=== PATIENT | female | born 1965 | race Caucasian/White ===

== ENCOUNTER 2018-08-10 07:14 | Day surgery (SDC) | payer BC, SELFPAY ==
--- NOTE | 2018-08-10 06:27 | W.COLOREPORT ---
Date of service: 08/10/18 Time of Service: 08: Colonoscopy Report Date of procedure: 08/10/18 Pre-op diagnosis general: Hx of polyps Post-op diagnosis procedure note: other (polyps) Procedure: Colonoscopy with polypectomy by cold forceps Surgeon: Laurie Mathis Anesthesia proc note operative: MAC (Thuy Fernandez CRNA /ASA 2) Estimated blood loss (mL): 5 Pathology: other (sigmoid colon polyps x4, rectal polyps x3) Complications: None Disposition: same day Indications: Mrs. Garcia is a pleasant 53 year old who was seen in the office for a follow-up colonoscopy. Patient had a colonoscopy in 2014 and was noted to have a tubular adenoma and a couple of hyperplastic polyps. Risks, benefits and complications have been reviewed. Complications include but are not limited to bleeding, pain, perforation, missed small lesion/polyp, sore throat, aspiration and adverse reaction to the medications. Questions were entertained and answered to their satisfaction and they wished to proceed. No guarantees were given or implied. Prep: Miralax/Dulcolax Procedure Start Time: : Procedure End Time: 09:02 Retraction Time: 26 minutes Findings: 1. Sigmoid polyps x4 2. Rectal polyps x3 Procedure Description: After informed consent was obtained the patient was taken to the procedure room and placed in a left decubitous position. Monitors were applied and a time out was done. The patients name, date of , procedure, allergies to medications and metal in their body was reviewed. The patient was then sedated. Once sedated and comfortable a rectal exam was done. External exam was normal. Internal exam revealed a normal sphincter tone and no palpable masses. The scope was then introduced and retro-flexed. No internal hemorrhoids were identified. The scope was then advanced to the cecum without difficulty. The TI and appendiceal orifice were identified. The prep was good. The scope was then slowly retracted over 26 minutes back into the rectum. Polyps were removed in the sigmoid colon x4, and rectal polyps x3. The scope was removed and the patient was woken up and taken back to Same day surgery in stable condition. The patient tolerated the procedure well and there were no immediate complications. Follow up: The patient should follow up in 3 years unless they develop changes in bowel habits or other new gastrointestinal complaints.
--- NOTE | 2018-08-10 06:31 | W.PM.DSUDISC ---
Discharge Plan Disposition Patient Disposition: HOME Condition: Good Discharge Details Reason For Visit: Hx of polyps/ F/U Colonoscopy Attending Provider: Laurie Mathis Primary Care Provider: Lynnette Saab Home Meds and New Rx's Prescriptions: Continued multivitamin tablet 1 tab PO DAILY RF: 0 nicotine [Nicoderm CQ] 1 EACH patch 24 hour 14 mg Transdermal DAILY 30 Days RF: 0 nicotine [Nicoderm CQ] 1 EACH patch 24 hour 21 mg Transdermal DAILY 30 Days RF: 0 ibuprofen 200 MG tablet 600 mg PO Q6H PRN RF: 0 omeprazole 20 MG capsule,delayed release(DR/EC) 20 mg PO DAILY RF: 0 nicotine [Nicoderm CQ] 1 EACH patch 24 hour 7 mg Transdermal DAILY 30 Days RF: 0 Discontinued bisacodyl [Dulcolax (bisacodyl)] 5 mg tablet,delayed release (DR/EC) 5 mg PO ONCE Qty: 4 RF: 0 polyethylene glycol 3350 17 gram/dose powder 255 g PO ONCE Qty: 255 RF: 0 Discharge Instructions Instructions: Colonoscopy (DC), Colorectal Polyps (DC) Additional Instructions: Findings: Multiple polyps Follow up: 3 years Please call if you develop: fevers >101.5 Nausea or Vomiting Abdominal pain that is not transient DAY SURGERY UNIT POST COLONOSCOPY INSTRUCTIONS 1. Because there will be medication in your system for the next 24 hours, you may feel a little sleepy. Your coordination will be affected. Therefore: a. Do not drive or operate dangerous equipment for 24 hours. b. Do not drink alcohol beverages for 24 hours (not even beer). c. Plan to go home and rest for the day. 2. Generally there are no restrictions on your activity after a day or so has gone by, but you may feel a bit fatigued for a few days. 3 After you arrive home you may have a light meal and return to a normal diet as you can tolerate it without feeling sick to your stomach. 4. After surgery, you may feel pain or discomfort. This should be only transient, but if it persists please contact your doctor. 5. If there are any questions regarding the findings of your procedure, please feel free to contact your doctor. 6. If you are unable to contact your doctor with a problem, contact the hospital at [phone]. 7. Continue all your regular medications unless directed otherwise. I understand the above instructions and have no questions. Signature of Patient or Responsible Adult Escort Date/Time Name of Responsible Adult Escort Signature of Nurse Date/Time Activity:: Activity as Tolerated Diet:: As Tolerated Discharge Orders Discharge Orders: Discharge Order (Routine); Ordered 08/10/18 Ordered By: Laurie Mathis DS: Diagnosis Discharge Diagnosis (1) Colorectal polyps: Status: Acute (2) S/P colonoscopy: Status: Acute
[2018-08-10 07:26] VITALS: BP 121/79; PULSE 73; RESP 16; TEMP 36.6; O2SAT 96
[2018-08-10] MEDS: Lactated Ringers 1,000 ML 80 ML IV (07:44)
--- NOTE | 2018-08-10 08:54 | BOWEL_PTH ---
PATIENT: Yael Garcia LOC: [facility] U#:[id number] AGE/SX: 53/F ROOM: RE08/10/[address]: Laurie Mathis MD : [id number] BED: DIS: 08/10/2018 SPEC #: [id number] RECD: 08/10/18 12:52 STATUS: LYNDON RE #: [id number] ANTONIA: 08/10/18 08:[address]: Laurie Mathis DEPT: Surgical Specimen RECD BY: Anna Puga ENTERED: 08/10/18 12:55 SP TYPE: Bowel OTHR DR: Lynnette Saab Tissues: 1 - BIOPSY BOWEL 2 - BIOPSY BOWEL Procedures: GROSS AND MICRO LEVEL 4 Comments: [id number]
[2018-08-10 09:35] VITALS: BP 118/78; PULSE 64; RESP 16; O2SAT 94
== END 2018-08-10 10:15 | disposition home or self-care (01) ==
LOC: SUR 07:15
PROVIDERS: PCP Nurse Practitioner; Visit Provider Surgery
PROC: 0DJD8ZZ Inspection of Lower Intestinal Tract, Via Natural or Artificial Opening Endoscopic (ICD-10-PCS; CPT 45378; principal; 2018-08-10 08:15)
DX: Z12.11 Encounter for screening for malignant neoplasm of colon (principal); D12.5 Benign neoplasm of sigmoid colon; K62.1 Rectal polyp; Z86.010 Personal history of colon polyps; J44.9 Chronic obstructive pulmonary disease, unspecified; F17.210 Nicotine dependence, cigarettes, uncomplicated
CPT/HCPCS: 45380; 88305

== ENCOUNTER 2019-08-09 10:32 | Outpatient (REF) | payer BC, SELFPAY ==
[2019-08-09 12:52] LABS: ALT 75 U/L (14-59); AST 40 U/L (15-37); Albumin 4.2 g/dL (3.4-5.0); Alkaline Phosphatase 192 U/L (46-116); Anion Gap 8.8 mmol/L (3-11); BUN 14 mg/dL (7-18); Bilirubin, Total 0.5 mg/dL (0.2-1.0); CO2 27.2 mmol/L (21.0-32.0); CREATININE 0.72 mg/dL (0.55-1.02); Calcium 9.8 mg/dL (8.5-10.1); Calculated LDL 161 mg/dL (>130); Chloride 105 mmol/L (98-107); Cholesterol 256 mg/dL (<200); Glucose 92 mg/dL (74-106); HDL Cholesterol 54 mg/dL (40-60); Potassium 4.2 mmol/L (3.5-5.1); Sodium 141 mmol/L (136-145); Total Protein 7.4 g/dL (6.4-8.2); Triglyceride 205 mg/dL (<150)
[2019-08-10 07:51] LABS: Vitamin D 25 Total 29.5 ng/ml (30-100)
== END 2019-08-09 10:52 ==
LOC: NCHCN 10:32
PROVIDERS: PCP Nurse Practitioner; Visit Provider Nurse Practitioner
DX: Z00.00 Encounter for general adult medical examination without abnormal findings (principal); Z13.29 Encounter for screening for other suspected endocrine disorder; Z13.228 Encounter for screening for other metabolic disorders; Z13.220 Encounter for screening for lipoid disorders; Z13.21 Encounter for screening for nutritional disorder
CPT/HCPCS: 80053; 80061; 82306; 84443

== ENCOUNTER 2019-08-23 01:40 | Outpatient (CLI) | payer BC, SELFPAY ==
--- NOTE | 2019-08-23 11:13 | DI.MAMMO_ITS ---
EXAM: MG MAMMO SCREENING CLINICAL HISTORY: SCREENING Z12.39. FAMILY H/O BREAST CA TECHNIQUE: Bilateral full field digital CC and MLO mammographic images were obtained with 3D tomosyn thesis and utilizing computer aided detection (CAD). COMPARISON: Available for comparison. FINDINGS: Masses/Architectural Distortion: None seen. Microcalcifications: No suspicious pleomorphic-type are seen. Skin Thickening/Nipple Retraction: None. IMPRESSION: 1. No significant interval change with no specific features of malignancy noted. 2. Unless there is more urgent need, screening mammography is recommended, as per [place] [employer] guidelines. ACR BI-RAD Category- 1 Negative Breast Density - Category B - Scattered areas of fibroglandular density A negative radiographic report should not delay biopsy if a dominant or clinically suspicious mass is present. Up to ten percent of cancers are not identified on mammography. A negative report may reinforce clinical impression. Adenosis and dense breasts may obscure an underlying neoplasm. False positive reports average 6 to 10%. Patient will receive a letter notifying them of these results.
== END 2019-08-23 02:00 ==
PROVIDERS: PCP Nurse Practitioner; Visit Provider Nurse Practitioner
DX: Z12.31 Encounter for screening mammogram for malignant neoplasm of breast (principal); Z80.3 Family history of malignant neoplasm of breast
CPT/HCPCS: 77063; 77067

== ENCOUNTER 2023-08-12 09:57 | Emergency (ER) | payer OTHER, SELFPAY ==
[2023-08-12 10:13] VITALS: BP 145/80; PULSE 70; RESP 17; TEMP 36.8; O2SAT 98
--- NOTE | 2023-08-12 10:27 | W.ED.GENAD ---
HPI General Date/Time Provider Initiated Documentation: 08/12/23 10:21. HPI Narrative: 58 year-old female presents to ED today by POV/wheelchair with a chief complaint of R knee injury, tripped going down steps and landed on R-knee, is R-hand dominant with onset just prior to arrival. Quality described as very painful with any movement to the knee, no radiation to numbness/tingling distally, gross swelling, gross deformity, proximal leg pain. Severity is described as 9/10 at onset, more mild at rest. Palliating factors include nothing specific attempted. Provoking factors include nothing specific. Patient not anticoagulated. Related Data Home Medications Medication Instructions Recorded Confirmed ibuprofen 200 mg tablet 600 mg PO Q6H PRN 11/10/14 08/12/23 omeprazole 20 mg capsule,delayed 20 mg PO DAILY 11/10/14 08/12/23 release multivitamin 1 tab PO DAILY 07/16/18 08/12/23 cholecalciferol (vitamin D3) 50 50 mcg PO DAILY 08/12/23 08/12/23 mcg (2,000 unit) capsule (Vitamin D3) Allergies Allergy/AdvReac Type Severity Reaction Status Date / Time No Known Allergies Allergy Verified 08/12/23 14:14 General Stated Complaint: Orthopedic FENG: 4 Review of Systems All systems reviewed & are unremarkable except as noted in HPI and below Exam Narrative Exam Narrative: GENERAL APPEARANCE: Well-nourished, non-toxic, awake and alert, atraumatic, no acute distress. SKIN: Warm, pink, dry, intact, without rashes/lesions/ulcerations. HEAD: Normocephalic, atraumatic, normal hair distribution for gender/age. EYES: Pupils PERRLA, EOMs intact without nystagmus, normal conjunctiva, no exudates on lids/lashes. ENT: Nares patent, no circumoral cyanosis, no facial swelling NECK: Supple, trachea midline, painless cervical ROM. LUNGS/CHEST: Lungs CTA bilaterally - no rhonchi/rales/wheezes diffusely, non-labored respirations, normal A/P diameter, symmetrical expansion, no chest wall deformity HEART (CV/PV): Regular rate and rhythm without murmur, no peripheral edema, no JVD. ABDOMEN: Soft, non-distended, no guarding. MSK: Normal ROM, no swelling/deformity to bilateral UEs or LEs, moving all extremities without weakness, no cyanosis, spine midline without tenderness, normal curvature. R LE: Swelling and tenderness with crepitus to the right knee with a palpable deformity at the right patella, no tib-fib tenderness, femur stable, weightbearing not tested, pain with movement but able to be assisted to extension NEURO: Mental Status AAOx4 - alert to person, place, time, events No facial droop, no forehead involvement. Motor: No focal weakness - strength 5/5 in bilateral UEs and LEs, proximal and distal, symmetric. Sensory: sensation intact to light touch globally. Gait NT. PSYCH: euthymic, cooperative, pleasant, appropriate speech Course Vital Signs Vital signs: Vital Signs Temperature 36.8 C 08/12/23 10:13 Pulse 70 08/12/23 10:13 Respiratory Rate 17 08/12/23 10:13 Blood Pressure 145/80 H 08/12/23 10:13 Pulse Oximetry 98 08/12/23 10:13 Temperature 36.8 C 08/12/23 10:13 Temperature Source Temporal Artery Scan 08/12/23 10:13 Pulse 70 08/12/23 10:13 Respiratory Rate 17 08/12/23 10:13 Blood Pressure 145/80 H 08/12/23 10:13 Blood Pressure Position Sitting 08/12/23 10:13 Pulse Oximetry 98 08/12/23 10:13 Oxygen Delivery Method Room Air 08/12/23 10:13 Oxygen Flow Rate 0 08/12/23 10:13 Medical Decision Making This dictation utilizes [id number] dictation software and may contain unedited grammatical errors. 58 y/o F presents to ED today with a chief complaint of fall after missing a stair, landed directly on R patella- pain & swelling. Patient denies numbness/tingling, denies headstrike. Patients' medical history: no cardiac disease. Family and social history: noncontributory. Pertinent exam findings / vital signs include R LE: Swelling and tenderness with crepitus to the right knee with a palpable deformity at the right patella, no tib-fib tenderness, femur stable, weightbearing not tested, pain with movement but able to be assisted to extension, pedal pulses intact distal Differential / pathologies of concern include Fracture, Internal Knee Injury, Sprain, Contusion. Diagnostic studies of: -XR R Knee 4 view - shows significantly patellar fracture with fragments displaced and retracted apart. Interventions of: -Tavarez dressing, knee immobilizer, crutches, orthopaedic consult. ED Course/Assessment/Plan: 58-year-old female presents with right knee injury, has significant patellar fracture with retraction of inferior and superior fragments with tendons, has no active range of motion at the knee discussed with orthopedics and she will be operated on either tomorrow or the next day, they find it reasonable to discharge home with Tavarez dressing and knee immobilizer, encouraged RICE therapy and using Tylenol as needed for pain. Findings not consistent with neurovascular compromise distal to injury. Disposition of Fracture of Right Patella. Patient verbalized understanding of the plan and return to ED criteria and engaged in shared decision making. Medical Records Medical records reviewed: Yes I reviewed the patient's medical records. Imaging Data Radiologic Study: Attestation: I personally reviewed and interpreted this imaging study as follows: Imaging: X-Ray Radiologist's impression: EXAM: XR KNEE RT 4V AP,LAT,AB,PAT CLINICAL HISTORY: direct impact to knee, possible patellar fracture. TECHNIQUE: 2D digital imaging was performed. Three views. COMPARISON: No exams were available for comparison FINDINGS: BONES: Fracture through the mid patella extending transversely periods separation of fracture fragments of 2.8 cm. Few small comminuted fragments are visible. The distal femur and proximal tibia and fibula appear intact. No bony destructive lesion is seen. JOINTS: Joint spaces are maintained.. No joint effusion is seen. SOFT TISSUE: Marked swelling anterior to patella. IMPRESSION: Patellar fracture with significant separation of fracture fragments. Quality:SDOH Health Related Social Needs: No Data to Display PFSH All Active Problems Fracture of right patella (Acute) Right patella fracture (Acute 08/12/23) S/P colonoscopy (Acute ~08/10/18) Colorectal polyps (Acute) Encounter for screening colonoscopy (Acute) History of colonic polyps (Acute) Medical History Bronchitis GERD (gastroesophageal reflux disease) Lung nodule Tubulovillous adenoma Surgical History Colonoscopy - IV Sedation (02/01/15) Cholecystectomy Family History Father Crohns disease Brother Abdominal malignant neoplasm Other Kidney disease Social History (Updated 12/28/18 @ 14:27 by Radha Rausch RN) Smoking/Tobacco Use Status: Current every day Tobacco Type: cigarettes Smoking risk assessment performed?: Yes Alcohol Intake: never Drug use: Never Substance use type: does not use Do you feel safe at home: Yes Do you feel safe in your relationship?: Yes Discharge Plan Disposition Patient Disposition: Home Condition: Stable Discharge Details Clinical Impression: Fracture of right patella Primary Care Provider: Lynnette Saab ED Provider: Roberto Garcia Home Meds and New Rx's Prescriptions: Continued multivitamin tablet 1 tab PO DAILY ibuprofen 200 MG tablet 600 mg PO Q6H PRN omeprazole 20 MG capsule,delayed release(DR/EC) 20 mg PO DAILY No Action cholecalciferol (vitamin D3) [Vitamin D3] 50 mcg (2,000 unit) capsule 50 mcg PO DAILY Discharge Instructions Instructions: Patellar Fracture (ED) Additional Instructions: You were seen in the emergency department for the fracture of your right patella, I have consulted with orthopedics and they plan to do surgery either tomorrow or Thursday. When they contact you for surgery you must have nothing by mouth after midnight that night. Remain in the knee immobilizer and is much extension as you can use crutches, you can weight-bear as tolerated. Please use therapeutic dosing of Tylenol (acetamenophen) & Advil (ibuprofen) in an alternating fashion as follows: Take 1000mg of Tylenol every 6 hours without missing doses- that is 4 times per day. [place] in between the Tylenol dosings, take 400-600mg of Advil also on a 6 hour schedule, that is also 4 times per day. The daily maximum dosing of Tylenol is 4000mg, and the daily maximum dosing of Advil is 2400mg. This is safe to do for weeks. Please note that some common cold medications & prescription pain medications may contain acetamenophen and you need to read OTC drug labels and factor that in to maximum daily dosings. Please hold ibuprofen midday prior to surgery day. Referrals: [facility] [Provider Group] Lynnette Saab [Primary Care Provider] - Discharge Data Discharge Date/Time-TO BE ENTERED AT DEPARTURE: 08/12/23 12:26
[2023-08-12] MEDS: Acetaminophen 500 MG TAB 1000 MG PO (11:07)
[2023-08-12] MEDS: Ketorolac 10 MG TAB PO (11:07)
--- NOTE | 2023-08-12 11:09 | DI.RAD_ITS ---
Exam(s) XR KNEE RT 4V AP,LAT,AB,PAT EXAM: XR KNEE RT 4V AP,LAT,AB,PAT CLINICAL HISTORY: direct impact to knee, possible patellar fracture. TECHNIQUE: 2D digital imaging was performed. Three views. COMPARISON: No exams were available for comparison FINDINGS: BONES: Fracture through the mid patella extending transversely periods separation of fracture fragmen ts of 2.8 cm. Few small comminuted fragments are visible. The distal femur and proximal tibia and f ibula appear intact. No bony destructive lesion is seen. JOINTS: Joint spaces are maintained.. No joint effusion is seen. SOFT TISSUE: Marked swelling anterior to patella. IMPRESSION: Patellar fracture with significant separation of fracture fragments. DATA REPOSITORY: RADIATION DOSE DELIVERED:
--- NOTE | 2023-08-12 11:36 | W.ORTHOCONSU ---
Date of service: 08/12/23 Time of Service: 11:36 Assessment and Plan Assessment and plan (1) Right patella fracture: Status: Acute Assessment and plan: 58-year-old female with displaced right patella fracture. Patient had a mechanical slip and fall at work prior to arrival at ER, landing directly onto her right knee. She denies any pre-existing right knee issues. Patient evaluated by ER provider and consultation requested. Patient received p.o. Toradol and Tylenol. Reports the pain is tolerable, declines any additional pain medication. Knee is currently flex but reports it feels better extended. Here in the ER today with her . Patient reports past medical history of GERD. Smokes 1 pack of cigarettes daily. Right knee exam: Visual inspection without erythema or ecchymosis. Skin is intact. There is diffuse discomfort about the patella as well as swelling and crepitus appreciated. Knee exam is limited secondary to guarding. Patient holds her knee in approximately 90 degrees of flexion. She is able to actively extend her knee without assistance, approximately 20 degrees short of full extension. Knee is stable to varus and valgus stress. Unable to assess anterior draw. Calf is soft, nontender. Normal pedal pulse and capillary refill. Reviewed x-ray with the patient and , reveals a transverse displaced patella fracture. Discussed in length. The knee was wrapped in a 6 inch Tomas wrap by me, patient tolerated well. I was able to passively extend her knee into near full extension. Patient reports that she is motivated to get home, does not believe that she needs to be hospitalized. Does not want anything other than [id number] Tylenol or Motrin. We discussed weightbearing as tolerated in full extension. Will check the surgical schedule and set her up for surgery either tomorrow or Thursday. She does understand that she will need to be n.p.o. after midnight the night before her surgery. Discussed with [facility] and provider. Patient would like to put her pants back on and then a foam knee immobilizer will be applied in near full extension. Patient will then need crutches with teaching, again we discussed the importance of partial weightbearing as tolerated in extension. In the meantime she was encouraged to rest, elevate, cool compresses every 2 hours for 20 minutes. All questions were answered. Agree and understand treatment plan. Will call if any changes or concerns. Plan for surgery tomorrow: Right patella ORIF. Called emergency room to update patient with the plan. Case added onto OR schedule. Informed consent will be obtained tomorrow. Follow-up 10 to 14 days postop. PFSH All Active Problems (Updated 08/12/23 @ 12:05 by WILLIS Oro) Fracture of right patella (Acute) Right patella fracture (Acute 08/12/23) S/P colonoscopy (Acute ~08/10/18) Colorectal polyps (Acute) Encounter for screening colonoscopy (Acute) History of colonic polyps (Acute) Medical History (Updated 08/12/23 @ 12:05 by WILLIS Oro) Bronchitis GERD (gastroesophageal reflux disease) Lung nodule Tubulovillous adenoma Surgical History (Updated 08/10/18 @ 09:10 by Laurie Mathis MD) Colonoscopy - IV Sedation (02/01/15) Cholecystectomy Family History Father Crohns disease Brother Abdominal malignant neoplasm Other Kidney disease Social History (Updated 07/16/18 @ 14:27 by Radha Rausch RN) Smoking/Tobacco Use Status: Current every day Smoking risk assessment performed?: Yes Alcohol Intake: never Drug use: Never Substance use type: does not use Do you feel safe in your relationship?: Yes Results Last Vital Signs Temp 98.2 F 08/12/23 10:13 Pulse 70 08/12/23 10:13 Resp 17 08/12/23 10:13 BP 145/80 H 08/12/23 10:13 Pulse Ox 98 08/12/23 10:13
== END 2023-08-12 12:26 | disposition home or self-care (01) ==
PROVIDERS: Emergency Provider Physician Assistant; PCP Nurse Practitioner
DX: S82.041A Displaced comminuted fracture of right patella, initial encounter for closed fracture (principal); F17.210 Nicotine dependence, cigarettes, uncomplicated; W10.8XXA Fall (on) (from) other stairs and steps, initial encounter
CPT/HCPCS: 99283; 73564; 99284

== ENCOUNTER 2023-08-13 08:02 | Day surgery (SDC) | payer OTHER, SELFPAY ==
[2023-08-13] VITALS (13 sets, daily range): BP systolic 108–133; BP diastolic 61–82; PULSE 60–80; RESP 13–21; TEMP 36–37.1; O2SAT 93–98; BMI 28.5
--- NOTE | 2023-08-13 07:25 | ROE_ITS ---
Date of service: 08/13/23 Time of Service: 10:00 Operative Note Operative Note DATE OF PROCEDURE: 08/13/23 PRE-OP DIAGNOSIS: Displaced right patella fracture POST-OP DIAGNOSIS: same PROCEDURE: Right patella ORIF, CPT# 02399 SURGEON: Darian Boone ACCOUNTING SUPERVISOR: Alie Nielsen ANESTHESIA TYPE: Local By Surgeon, General LMA/ETT and Primary Nerve Block Refer to Anesthesia Record ESTIMATED BLOOD LOSS: 5 COMPLICATIONS: None Patient was transported to: PACU Patient's condition: stable Implants: [employer] FiberTape & SutureTape Indications: Please see complete medical record for details. Findings: Comminuted distal pole patella fracture Procedure Description: In the operating room, general anesthesia was induced. The patient was positioned supine on the operating room table. All bony prominences were well- padded. Preoperative antibiotics were administered. The right knee was prepped and draped in the usual sterile fashion. The correct patient, procedure, and side of the procedure were all verified prior to incision. The planned longitudinal incision for about the superior pole of the patella to the mid patellar tendon was preinjected with 0.25% bupivacaine 30 cc containing epinephrine. This longitudinal approach was used down to the obvious patellar defect. The fracture site was cleared of clot and debris. The joint was thoroughly irrigated of small osteochondral fragments. It was obvious that the distal patella bone was quite small and poor quality. It was really only present distally and laterally with very thin bone centrally to medially. This distal bone was soft, bone forward and sepsis could readily go through it and was not amenable to screw fixation. Instead, suture?only repair was done. The 1.5 mm drill was used to place 2 bone tunnels from the fracture site exiting the superior pole the patella taking care to be relatively parallel to the articular margin not penetrate the joint with a small nicks in the quadriceps tendon made to retrieve the next suture. The FiberTape loaded on a long straight needle was then used and placed through the thin bone distally medially, through the medial bone tunnel through the remainder of patella and retrieved through the quadriceps small neck and then brought distally again over the patella fracture in a crisscross pattern, through the distal lateral bone with the assistance of bone forcep and then through this lateral proximal patellar bone tunnel retrieved through the quadriceps tendon again. The free ends were then brought together and the cerclage nicely reduced the patella fracture distal patellar f ragments and patellar tendon altogether with reasonably good fixation strength. This reduction was provisionally clamped, x-rays confirmed appropriate reduction with slight step-off laterally due to the comminution and lack of anatomic bone campos, but the displacement was in the superior direction with no inferior bone or cartilage impinging on the joint or trochlea. Downward pressure on this frag ment was used to improve this reduction slightly. Next, suture tape was used [id number] fashion to meticulously closed and repaired the medial and lateral retinacular and capsular extensions of the injury, which greatly strengthened the repair. When the FiberTape tails were released the fracture only gapped minimally, these tails were then secured completing the FiberTape cerclage repair, the free ends then passed through the patellar tendon couple stitches to lock and then tighten the free ends again distally at the about the mid patellar tendon and an additional security over the comminuted distal segment. Lastly, a suture tape was then used cerclage through the quadriceps tendon near the superior pole of the patella and distal to the inferior pole patella for patellar tendon and secured medially compressing around the patella and entire repair. The patella was flexed to about 90 degrees with no displacement or gapping. The repair was stable through testing and inspection. The wound was thoroughly irrigated normal saline. 2-0 Monocryl was used to close subcutaneous tissue followed by 3-0 Monocryl running to close subcuticular layer. Skin glue applied over the incision followed by Mepilex bandage and the knee was wrapped in soft roll and the extremity was wrapped in Tomas bandage and placed into a knee immobilizer in full extension.
[2023-08-13] MEDS: Lactated Ringers 1,000 ML 30 ML IV ×2 (08:31→11:27)
--- NOTE | 2023-08-13 08:56 | W.ANESPRE ---
General Info Date of Service Date Performed: 08/13/23 Height: 5 ft 4 in Weight: 75.5 kg Body Mass Index (BMI): 28.5 Surgical Procedure: Operation Date: 08/13/23 10:10 Proposed Procedure Side Surgeon p Knee ORIF Patella Right Darian Boone MD Meds Allergies and Home Medications Allergies Allergy/AdvReac Type Severity Reaction Status Date / Time No Known Allergies Allergy Verified 08/12/23 14:14 Home Medication Medication Instructions Recorded ibuprofen 200 mg tablet 600 mg PO Q6H PRN 11/10/14 omeprazole 20 mg capsule,delayed 20 mg PO DAILY 11/10/14 release multivitamin 1 tab PO DAILY 07/16/18 cholecalciferol (vitamin D3) 50 50 mcg PO DAILY 08/12/23 mcg (2,000 unit) capsule (Vitamin D3) Current Visit Medications: Current Medications Generic Name Dose Route Start Last Admin Trade Name Freq PRN Reason Stop Dose Admin Ringer's Solution 1,000 mls @ 30 mls/hr 08/13/23 06:00 08/13/23 08:31 IV 09/11/23 23:59 30 mls/hr INFUSION YOVANNY Administration Cefazolin Sodium/Dextrose 2 gm in 50 mls @ 100 mls/hr 08/13/23 06:00 Ancef Duplex IVPB 08/13/23 16:00 PREOP YOVANNY IV Miscellaneous Supplies 1 each 08/13/23 06:00 Iv Access IV 09/11/23 23:59 DIRECTED YOVANNY Oxycodone HCl 0 mg 08/13/23 07:25 Oxycodone 5 Mg Tab PO 09/12/23 07:24 Q3H PRN PRN Pain Sodium Chloride 0 ml 08/13/23 06:00 Normal Saline Flush 10 Ml Syr IV 09/11/23 23:59 PRN PRN Sodium Chloride 0 ml 08/13/23 06:00 Normal Saline 10 Ml Vial IJ 09/11/23 23:59 DIRECTED PRN Sterile Water 0 ml 08/13/23 06:00 Water,Injection,Sterile 10 Ml Vial IJ 09/11/23 23:59 DIRECTED PRN PFSH Active Problems Active Problems: Problem Status Onset Code Fracture of right patella S82.001A Right patella fracture 08/12/23 S82.001A S/P colonoscopy ~08/10/18 Z98.890 Colorectal polyps K63.5 Encounter for screening colonoscopy Z12.11 History of colonic polyps Z86.010 Medical History Medical History Bronchitis GERD (gastroesophageal reflux disease) Lung nodule Tubulovillous adenoma Surgical History Surgical History Colonoscopy - IV Sedation (02/01/15) Cholecystectomy Tobacco Smoking/Tobacco Use Status: Current every day Tobacco Type: cigarettes Alcohol Alcohol Intake: never Substance Use Substance use: Never Substance use type: does not use Vital Signs and Lab Results Vital Signs Most Recent Vital Signs in EMR: Most Recent Vital Signs Temp Pulse Resp BP Pulse Ox 36 C L 72 18 127/75 98 08/13/23 08:05 08/13/23 08:05 08/13/23 08:05 08/13/23 08:05 08/13/23 08:05 Lab Results Blood Type / Crossmatch: No Data to Display Complete Blood Count: No Data to Display Complete Metabolic Panel: No Data to Display Liver Function Panel: No Data to Display Coagulation Panel: No Data to Display Cardiac Panel: No Data to Display Arterial Blood Gas: No Data to Display Venous Blood Gas: No Data to Display Pancreas Panel: No Data to Display Thyroid Panel: No Data to Display Infectious Disease: No Data to Display Blood Cultures: No Data to Display Toxicology Panel: No Data to Display Anesthesia Assessment and Plan Anesthesia History Personal History: Delayed Emergence Family History: No Family History of Anesthesia Complications Exercise Tolerance Exercise Tolerance: Metabolic Equivalents>4 Pertinent Negatives Pertinent Negatives: No Symptoms of GERD Cardiac & Pulmonary Exam Cardiac Exam: Normal S1/S2 Heart Sounds Pulmonary Exam: Clear Bilateral Breath Sounds Implantable Cardiac Device Does patient have a Pacemaker or an ICD?: No Airway Exam Known Difficult Airway: No Mallampati Class: 2 Mouth Opening: Normal (> 3cm) Thyromental Distance: Greater than 3 cm Neck Range of Motion: Full ROM Neck Circumference: Normal Teeth Condition: Normal Dentition ASA Classification ASA Score: ASA 2 Emergency Case?: No NPO Status NPO Status: NPO Clears >2 hours, Solids >8 hours Anesthesia Plan Resuscitation Status: Full Code Anesthesia Technique: General Anesthesia Airway Planned: LMA Pain Management: Surgeon and patient request nerve block Monitors Used: Standard Monitors and SedLine
--- NOTE | 2023-08-13 09:18 | W.PM.DSUDISC ---
Date of service: 08/13/23 Time of Service: 12:30 Discharge Plan Disposition Patient Disposition: Home Condition: Stable Discharge Details Reason For Visit: Right patella fx Attending Provider: Darian Boone Primary Care Provider: Lynnette Saab Home Meds and New Rx's Prescriptions: New naproxen 250 mg tablet 250 - 500 mg PO BID PRN (Reason: moderate pain and swelling) Qty: 40 0RF oxycodone 5 mg tablet 5 - 10 mg PO .q4-6h PRN (Reason: severe pain) Qty: 18 0RF aspirin 81 mg capsule 81 mg PO DAILY 14 Days Qty: 14 0RF Continued multivitamin tablet 1 tab PO DAILY ibuprofen 200 MG tablet 600 mg PO Q6H PRN omeprazole 20 MG capsule,delayed release(DR/EC) 20 mg PO DAILY cholecalciferol (vitamin D3) [Vitamin D3] 50 mcg (2,000 unit) capsule 50 mcg PO DAILY Discharge Instructions Additional Instructions: Surgery: Right patella ORIF Activity: Weightbearing as tolerated in full knee extension with knee brace and crutches. Okay to rest foot on ground during stance. Elevate extremity to minimize swelling and discomfort. May loosen, adjust, and remove Velcro knee brace while resting with the knee fully straight. It is important to restore full knee extension as soon as possible. Please perform exercises as instructed including quadriceps isometrics, ankle pumps, and foot and ankle range of motion to improve circulation. A physical therapy prescription will be sent electronically to start in about 3 weeks. Protocol: ROM: Full extension only until initial follow up and then gently advance flexion 15 degrees/week starting at 30 degrees week #2: 0-30 degrees week 2; 0-60 degrees week 4; Goal 90 degrees flexion by the end of week 6; 120 degrees flexion week 8 and then to full flexion. Immediate quad isometric OK; NO ACTIVE knee extension for 6 weeks' A-AROM weeks 6-8 and then AROM weeks 8+ Discontinue knee brace, wean from crutches, and transition to weightbearing as tolerated with gait training weeks 8+ Gentle spin/bike around week 10 Closed-chain strengthening after 12 weeks Prescriptions: Aspirin 81 mg take 1 daily to prevent a blood clot for 14 days Naproxen 250 mg take 1-2 every 12 hours with a meal as needed for moderate pain (do not use at same time as ibuprofen) Oxycodone 5 mg take 1-2 every 4-6 hours as needed for severe pain You may use qmai-mfs-oqawvik Tylenol (acetaminophen) as needed for mild pain. These pain medications may be taken all at once or in different combinations as needed. Also, recommend Colace (docusate) as a stool softener as surgery and pain medicine cause constipation. You may try htbi-dty-jottdxi diphenhydramine (Benadryl) 25-50 mg nightly as a sleep aid Dressings: Leave dressing in place for 3 days. May then remove and leave open to air or cover incisions with Band-Aids. Leave the sticky Steri-Strips in place until they fall off or remove them after you shower. May shower after 5 days. Follow-up: 10-[address] Boone You may take off the leg compression stockings this evening at home. You may also leave them on a few days longer if you have a history of leg swelling or edema. Let us know right away if you develop any redness, drainage, fevers, chest pain, or trouble breathing. Do not drink alcohol or drive for at least 24 hours after anesthesia. Please call the office during business hours with any questions or concerns. Stand Alone Forms: Anesthesia Discharge Inst., Anes.Nerve Block Instructions, Katina Epps (DSU), Use of Axillary Crutches Referrals: Darian Boone MD [ [facility] STAFF PHYSICIAN] - 08/25/23 11:15 am Discharge Orders Discharge Orders: Discharge Order (Routine); Ordered 08/13/23 Ordered By: Darian Boone DS: Diagnosis Discharge Diagnosis (1) Right patella fracture: Status: Acute
[2023-08-13] MEDS: ceFAZolin 2 GM/50 ML BAG IVPB (09:56)
--- NOTE | 2023-08-13 10:18 | W.ANESNERVE ---
Nerve Block Single Injection Procedure Date and Time Date Performed: 08/13/23 Procedure Start: 09:37 Location Where Procedure Performed Procedure Location: Day Surgery Unit Reason Performed: Postoperative Analgesia Requesting Provider: Darian Boone Timeout Performed Timeout Performed: Yes Monitoring Used ECG, Blood Pressure, SpO2, ETCO2 and See EMR for corresponding vital signs Sterility Sterility: Hand Hygiene, Surgical Cap, Surgical Mask, Sterile Gloves, Eye Protection and Chlorhexidine Sedation Given During Procedure Sedation Given (Indicate Dose Given): Versed IV Dose:: 3mg IVP Patient Mental Status Patient Mental Status: Sedate with meaningful communication Nerve Block 1st Nerve Block: Laterality: Right Block Type: Adductor Canal Ultrasound Image Saved?: Yes Needle / Catheter Used: 100mm SonoPlex II Local Anesthetic Bolus (Indicate Dose Given): Lidocaine used for local infiltration of skin, Injected in 3-5ml increments after negative blood aspiration and Ropivacaine 0.5% Dose:: 0.5%/20CC (100mg) Additives (Indicate Dose Given): Epinephrine to make 1:200,000 (5mcg/ml) Dose:: 10mcg (1:200,000) Ultrasound: Sterile probe cover and gel used Nerve Stimulator: Not Used Paresthesia: None Procedure Tolerated: No Complications and Patient tolerated well Procedure Outcome: Successful Performed By: Wade Geiger 2nd Nerve Block: Laterality: Right Block Type: Other (Genicular Nerve Block (Distal Vastus muscles, intermedius, lateralis and Medialis)) Ultrasound Image Saved?: Yes Needle / Catheter Used: 100mm SonoPlex II Local Anesthetic Bolus (Indicate Dose Given): Lidocaine used for local infiltration of skin, Bupivacaine 0.5% Dose:: 0.5%/10cc (50mg) and Exparel Dose:: 1.3%/10cc (133mg) Additives (Indicate Dose Given): Epinephrine to make 1:400,000 (2.5mcg/ml) Dose:: 50mcg (1:400,000) Ultrasound: Sterile probe cover and gel used Nerve Stimulator: Not Used Paresthesia: None Procedure Tolerated: No Complications and Patient tolerated well Procedure Outcome: Successful Performed By: Wade Geiger
[2023-08-13] MEDS: Bupivacaine 0.25% Pres-Free 30 ML VIAL (10:47)
[2023-08-13] MEDS: EPINEPHrine 10 MG/10 ML ML (10:47)
--- NOTE | 2023-08-13 11:15 | DI.RAD_ITS ---
Exam(s) XR KNEE RT 1V EXAM: XR KNEE RT 1V CLINICAL HISTORY: right patella fracture TECHNIQUE: 2D and realtime digital imaging was performed. CONTRAST MATERIAL: Refer to procedure report. COMPARISON: CR XR KNEE RT 4V AP,LAT,AB,PAT from 08/12/2023 FINDINGS: Fluoroscopy was provided for Dr. Paolo conway during the performance of a reduction the patellar fra cture. Please refer to the procedure report for complete details. Ka,r=0.3 mGy IMPRESSION: RADIATION DOSE DELIVERED:
--- NOTE | 2023-08-13 14:05 | W.ANESPOSTOP ---
Postoperative Evaluation Date, Time and Location Date Performed: 08/13/23 Time Performed: 13:05 Patient Location: Day Surgery Unit Vital Signs Most Recent Imported Vital Signs: Most Recent Vital Signs Temp Pulse Resp BP Pulse Ox 36.6 C 66 18 117/82 96 08/13/23 13:02 08/13/23 13:02 08/13/23 13:02 08/13/23 13:02 08/13/23 13:02 Pain Score Most Recent Pain Score: Most Recent Pain Score Pain Level 4 08/13/23 13:02 Assessment Mental Status: Awake (Alert & Oriented to Patient Baseline) Airway and Respiratory Function: Patent airway with normal (patient baseline) respiratory exam Cardiovascular Function: Hemodynamically Stable Hydration Status: Adequately Hydrated Nausea & Vomiting: No Nausea or Vomiting Pain: Pain is tolerable per patient Peripheral Nerve Block: Regional nerve block not resolved at time of post operative discharge
== END 2023-08-13 13:50 | disposition home or self-care (01) ==
PROVIDERS: PCP Nurse Practitioner; Visit Provider Student in an Organized Health Care Education/Training Program
PROC: (CPT 27524; principal; 2023-08-13 10:00)
DX: S82.001A Unspecified fracture of right patella, initial encounter for closed fracture (principal); S82.041A Displaced comminuted fracture of right patella, initial encounter for closed fracture; W01.0XXA Fall on same level from slipping, tripping and stumbling without subsequent striking against object, initial encounter; Y99.0 Civilian activity done for income or pay; F17.210 Nicotine dependence, cigarettes, uncomplicated; K21.9 Gastro-esophageal reflux disease without esophagitis
CPT/HCPCS: 27524; 76000; 76942; 73560; C9290; J0171; J0665; J0690; J1100; J1885; J2250; J2405; J2704

== ENCOUNTER 2023-08-25 11:47 | Outpatient (CLI) | payer OTHER, SELFPAY ==
--- NOTE | 2023-08-25 11:15 | DI.RAD_ITS ---
Exam(s) XR KNEE RT 2V AP,LAT EXAM: XR KNEE RT 2V AP,LAT INDICATION: F/U FRACTURE. COMPARISON: CR XR KNEE RT 4V AP,LAT,AB,PAT from 08/12/2023 TECHNIQUE: 2D digital imaging was performed. Two views. FINDINGS: The fracture fragment at the inferior pole of the patella no longer shows separation as on the prior exam. Adjacent small comminuted fragments present. Anterior soft tissue swelling. DATA REPOSITORY: RADIATION DOSE DELIVERED:
== END 2023-08-25 11:48 | disposition home or self-care (01) ==
LOC: DIORS 11:47
PROVIDERS: Visit Provider Student in an Organized Health Care Education/Training Program
DX: S82.011 Displaced osteochondral fracture of right patella (principal); X58.XXXD Exposure to other specified factors, subsequent encounter
CPT/HCPCS: 73560

== ENCOUNTER 2023-09-24 14:53 | Outpatient (CLI) | payer OTHER, SELFPAY ==
--- NOTE | 2023-09-24 10:00 | DI.RAD_ITS ---
Exam(s) XR KNEE RT 2V AP,LAT EXAM: XR KNEE RT 2V AP,LAT INDICATION: F/U PATELLA FRACTURE. COMPARISON: CR XR KNEE RT 2V AP,LAT from 08/25/2023 TECHNIQUE: 2D digital imaging was performed. Two views. FINDINGS: There is improved alignment at the patellar fracture, with no significant step-off as was seen on the previous exam. The comminuted fragment anteriorly is unchanged in position. There is anterior soft tissue swelling. Impression: Improvement in fracture alignment. DATA REPOSITORY: RADIATION DOSE DELIVERED:
== END 2023-09-24 14:54 | disposition home or self-care (01) ==
LOC: DIORS 14:53
PROVIDERS: Visit Provider Physician Assistant
DX: S82.041D Displaced comminuted fracture of right patella, subsequent encounter for closed fracture with routine healing (principal); X58.XXXD Exposure to other specified factors, subsequent encounter
CPT/HCPCS: 73560

== ENCOUNTER 2023-11-10 11:29 | Outpatient (CLI) | payer OTHER, SELFPAY ==
--- NOTE | 2023-11-10 11:24 | DI.RAD_ITS ---
Exam(s) XR KNEE RT 2V AP,LAT EXAM: XR KNEE RT 2V AP,LAT CLINICAL HISTORY: F/U FRACTURE. TECHNIQUE: 2D digital imaging was performed. COMPARISON: CR XR KNEE RT 2V AP,LAT from 08/25/2023 CR XR KNEE RT 2V AP,LAT from 09/24/2023 FINDINGS: Two views. The patellar fracture is again noted and alignment appears stable when compared to 09/24/2023. Fract ure line is still evident. IMPRESSION: Stable alignment at the patellar fracture site which is at the junction of the mid and lower thirds o f the patella. DATA REPOSITORY: RADIATION DOSE DELIVERED:
== END 2023-11-10 11:30 | disposition home or self-care (01) ==
LOC: DIORS 11:30
PROVIDERS: Visit Provider Student in an Organized Health Care Education/Training Program
DX: S82.041D Displaced comminuted fracture of right patella, subsequent encounter for closed fracture with routine healing (principal); X58.XXXD Exposure to other specified factors, subsequent encounter
CPT/HCPCS: 73560

== ENCOUNTER 2023-12-08 13:54 | Outpatient (CLI) | payer OTHER, SELFPAY ==
--- NOTE | 2023-12-08 09:45 | DI.RAD_ITS ---
Exam(s) XR KNEE RT 2V AP,LAT EXAM: XR KNEE RT 2V AP,LAT INDICATION: F/U RIGHT PATELLA FX. COMPARISON: CR XR KNEE RT 2V AP,LAT from 11/10/2023 TECHNIQUE: 2D digital imaging was performed. Two views. FINDINGS: There has been no change in the alignment of the patellar fracture. The bones appear osteopenic. Th ere is anterior soft tissue swelling. DATA REPOSITORY: RADIATION DOSE DELIVERED:
== END 2023-12-08 13:55 | disposition home or self-care (01) ==
LOC: DIORS 13:55
PROVIDERS: Visit Provider Student in an Organized Health Care Education/Training Program
DX: S82.041D Displaced comminuted fracture of right patella, subsequent encounter for closed fracture with routine healing (principal); X58.XXXD Exposure to other specified factors, subsequent encounter
CPT/HCPCS: 73560

== ENCOUNTER 2024-01-19 08:41 | Outpatient (CLI) | payer OTHER, SELFPAY ==
--- NOTE | 2024-01-19 08:30 | DI.RAD_ITS ---
Exam(s) XR KNEE RT 2V AP,LAT EXAM: XR KNEE RT 2V AP,LAT CLINICAL HISTORY: F//U PATELLA ORIF. TECHNIQUE: 2D digital imaging was performed. COMPARISON: CR XR KNEE RT 2V AP,LAT from 12/08/2023 FINDINGS: Two views. The transverse fracture in the lower half of the patella appears unchanged. Fracture line still evid ent. No further distraction/displacement. No additional fractures evident. No prominent joint effu kenyatta. No new findings in the medial lateral compartments. IMPRESSION: Radiographically unchanged from 12/08/2023. DATA REPOSITORY: RADIATION DOSE DELIVERED:
== END 2024-01-19 08:42 | disposition home or self-care (01) ==
LOC: DIORS 08:42
PROVIDERS: Visit Provider Student in an Organized Health Care Education/Training Program
DX: S82.001A Unspecified fracture of right patella, initial encounter for closed fracture (principal)
CPT/HCPCS: 73560

== ENCOUNTER 2024-04-20 14:39 | Outpatient (CLI) | payer OTHER, SELFPAY ==
--- NOTE | 2024-04-20 08:00 | DI.RAD_ITS ---
Exam(s) XR KNEE RT 2V AP,LAT EXAM: XR KNEE RT 2V AP,LAT CLINICAL HISTORY: F/U PATELLA ORIF. TECHNIQUE: 2D digital imaging was performed of the right knee. Two views obtained. AP and lateral views were obtained. COMPARISON: CR XR KNEE RT 4V AP,LAT,AB,PAT from 08/12/2023 CR XR KNEE RT 2V AP,LAT from 01/19/2024 FINDINGS: BONES: There has been significant interval healing of the patellar fracture best appreciated on the l ateral view. The medial component of the fracture is still present as seen on the AP view. No bony destructive lesion is seen. JOINTS: The knee is normally aligned. Tiny joint effusion. SOFT TISSUE: Normal. IMPRESSION: There has been some interval healing of the patellar fracture since the prior examination. If furthe r characterization of the healing is requested, CT scan should be considered. DATA REPOSITORY: RADIATION DOSE DELIVERED:
== END 2024-04-20 14:40 | disposition home or self-care (01) ==
LOC: DIORS 14:40
PROVIDERS: Visit Provider Student in an Organized Health Care Education/Training Program
DX: S82.041D Displaced comminuted fracture of right patella, subsequent encounter for closed fracture with routine healing (principal); X58.XXXD Exposure to other specified factors, subsequent encounter
CPT/HCPCS: 73560